=== PATIENT | female | born 2000 | race Hispanic/Latino ===

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

== ENCOUNTER 2021-04-19 00:37 | Emergency (ER) | payer SELFPAY ==
[2021-04-19] MEDS ORDERED: Ibuprofen 200 MG TAB ONE (02:26)
[2021-04-19] MEDS ORDERED: HYDROcodone/Acetaminophen 5/325 mg Tablet ONE (02:26)
== END 2021-04-19 02:45 | disposition home or self-care (01) ==
LOC: ERS 00:37
DX: S93.401A Sprain of unspecified ligament of right ankle, initial encounter (principal); Z79.01 Long term (current) use of anticoagulants; X50.1XXA Overexertion from prolonged static or awkward postures, initial encounter

== ENCOUNTER 2023-10-03 13:47 | Emergency (ER) | payer SELFPAY ==
[2023-10-03] MEDS ORDERED: Ketorolac Tromethamine 30 MG/ML VIAL ONE (16:05)
== END 2023-10-03 16:52 | disposition home or self-care (01) ==
LOC: ERS 13:47
DX: G43.909 Migraine, unspecified, not intractable, without status migrainosus (principal)
CPT/HCPCS: 70450; 96372; J1885

== ENCOUNTER 2024-05-27 20:47 | Emergency (ER) | payer OTHER, SELFPAY ==
[2024-05-27] MEDS ORDERED: Acetaminophen 500 MG TAB ONE (21:30)
[2024-05-27] MEDS ORDERED: Ondansetron ODT 4 MG TAB ONE (21:31)
[2024-05-27 22:38] LABS: Influenza A by NAA Not Detected (NotDetected); Influenza B by NAA Not Detected (NotDetected); SARS-CoV-2 NAA Rapid Test Not Detected (NotDetected)
== END 2024-05-27 22:51 | disposition home or self-care (01) ==
LOC: ERS 20:47
DX: B34.9 Viral infection, unspecified (principal)
CPT/HCPCS: 99283; Q0162

== ENCOUNTER 2025-01-04 16:54 | Emergency (ER) | payer OTHER, SELFPAY ==
[2025-01-04 18:01] LABS: #Basophils 0.03 10x3/uL (0.0-0.2); %Basophils 0.4 % (0.0-1.0); %Eosinophils 0.9 % (0.0-10.0); %Lymphocytes 25.7 % (21.0-51.0); %Monocytes 9.8 % (0.0-10.0); %Neutrophils 62.9 % (42.0-75.0); Hematocrit 42.9 % (36.0-47.0); Hemoglobin 14.5 g/dL (12.0-16.0); Mean Corpuscular HGB CONC 33.8 g/dL (32.0-36.0); Mean Corpuscular Hemoglobin 29.5 pg (27.0-31.0); Mean Corpuscular Volume 87.4 fL (78.0-98.0); Mean Platelet Volume 9.4 fL (7.4-10.4); Platelet Count 272 10x3/uL (130-400); RBC Distribution Width 12.6 % (11.5-14.5); Red Blood Cell (RBC) Count 4.91 mill/uL (4.20-5.40)
[2025-01-04 18:25] LABS: ALT (SGPT) 22 U/L (Less than 34); AST (SGOT) 28 U/L (11-34); Albumin 3.9 g/dL (3.1-4.5); Alkaline Phosphatase 66 U/L (40-110); Anion Gap 13 mmol/L (10-20); BUN (Urea Nitrogen) 8 mg/dL (7.0-18.7); Bilirubin, Total 0.3 mg/dL (0.3-1.2); Calc. Creatinine Clearance 0 mL/min (70-130); Calcium 9.3 mg/dL (7.8-10.44); Carbon Dioxide 21 mmol/L (22-29); Chloride 107 mmol/L (98-107); Estimated GFR 122; Globulin 3.5 g/dL (2.4-3.5); Glucose 102 mg/dL (70-105); Lipase 25 U/L (8-78); Potassium 3.9 mmol/L (3.5-5.1); Protein, Total 7.4 g/dL (6.0-8.3); Sodium 137 mmol/L (136-145)
[2025-01-04] MEDS ORDERED: Ketorolac Tromethamine 30 MG (1 mL) VIAL ONE (18:37)
[2025-01-04] MEDS ORDERED: Ondansetron ODT 4 MG TAB ONE (18:38)
== END 2025-01-04 19:10 | disposition home or self-care (01) ==
LOC: ERS 16:54
DX: J06.9 Acute upper respiratory infection, unspecified (principal); R11.2 Nausea with vomiting, unspecified
CPT/HCPCS: 36415; 80053; 83690; 85025; 87081; 87428; 87430; 96372; 99283; J1885; Q0162